=== PATIENT | female | born 1950 | race Caucasian/White ===

== ENCOUNTER 2018-07-12 16:28 | Emergency (ER) | payer BC, MEDICARE ==
[~2018-07-12] VITALS: Ht 157.5 cm; Wt 64.4 kg
--- NOTE | 2018-07-12 16:55 | NUR ---
PT IS IN ROOM #2A. DR AVALOS EVALUATED THE PT.
[2018-07-12] MEDS ORDERED: LIDOCAINE HCL 2% 20 ML VIAL TP ONE (17:15)
--- NOTE | 2018-07-12 17:25 | NUR ---
PT WAS D/C'd TO HOME. D/C INSTRUCTIONS GIVEN TO THE PT. NO BLEEDING. PT DENIES PAIN.
[2018-07-12 17:26] VITALS: BP 142/71
== END 2018-07-12 17:31 | disposition home or self-care (01) ==
LOC: ER 16:30 → EDBD 16:30 → ER 17:31
DX: S66.328A Laceration of extensor muscle, fascia and tendon of other finger at wrist and hand level, initial encounter (principal); I10 Essential (primary) hypertension; E78.00 Pure hypercholesterolemia, unspecified; W26.0XXA Contact with knife, initial encounter; Y93.89 Activity, other specified; Y92.89 Other specified places as the place of occurrence of the external cause; Y99.8 Other external cause status
CPT/HCPCS: A4663